=== PATIENT | male | born 2000 | race Caucasian/White ===

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

== ENCOUNTER 2020-03-22 19:34 | Emergency (ER) | payer MEDICAID ==
[~2020-03-22] VITALS: Ht 188 cm; Wt 85.7 kg
[2020-03-22 19:34] VITALS: BP 137/88
[~2020-03-22 19:34] MED LIST: CEPH-264 PO
[2020-03-22 22:05] LABS: INFLUENZA A PATIENT NEGATIVE (NEGATIVE); INFLUENZA B PATIENT NEGATIVE (NEGATIVE)
--- NOTE | 2020-03-22 22:14 | PHYS DOC ---
Past History Past Medical History: Sinusitis, Other Additional Past Medical Histor: concussion Past Surgical History: No Surgical History Smoking: Non-smoker Alcohol Use: None Drug Use: None General Adult EDM: Chief Complaint: HEADACHE HPI: HPI: ".. I get sinus problems this time a year... I am in isolation... because of school policy.. 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 Patient has been placed in isolation because of sinus complaints. Patient has had symptoms of increased congestion nasal drainage and sore throat for last 3 days. Patient states he has had seasonal sinus complaints every year at this time. In the past is used normal saline rinses, nasal steroids, and decongestants. Patient is on a scholarship from [employer] for his college patient is really from [place]. No recent travel outside the [place] area. No specific ill contacts. Patient is normally healthy. Patient up-to-date with vaccinations. Patient is scheduled to have COVID testing-by the [facility] this week. Review of Systems: Review of Systems: Constitutional: Denies fever or chills Eyes: Denies change in visual acuity HENT: Complains of nasal congestion and sore throat Respiratory: Denies cough or shortness of breath Cardiovascular: Denies chest pain or edema GI: Denies abdominal pain, nausea, vomiting, bloody stools or diarrhea : Denies dysuria Musculoskeletal: Denies back pain or joint pain Integument: Denies rash Neurologic: Denies headache, focal weakness or sensory changes Endocrine: Denies polyuria or polydipsia Lymphatic: Denies swollen glands Psychiatric: Denies depression or anxiety Heart Score: Risk Factors: Risk Factors: DM, Current or recent (<one month) smoker, HTN, HLP, family history of CAD, obesity. Risk Scores: Score 0 - 3: 2.5% MACE over next 6 weeks - Discharge Home Score 4 - 6: 20.3% MACE over next 6 weeks - Admit for Clinical Observation Score 7 - 10: 72.7% MACE over next 6 weeks - Early Invasive Strategies Family History: Family History: Noncontributory Current Medications: Current Meds: See nursing for home meds Allergies: Allergies: Allergies Coded Allergies Type Severity Reaction Last Updated Verified No Known Drug Allergies 06/01/19 No Physical Exam: PE: Constitutional: Well developed, well nourished, no acute distress, non-toxic appearance. [] HENT: Normocephalic, atraumatic, bilateral external ears normal, oropharynx moist, postnasal drainage and mild erythema no oral exudates, nose swollen turb inates and clear rhinorrhea Eyes: PERRLA, EOMI, conjunctiva normal, no discharge. [] Neck: Normal range of motion, no tenderness, supple, no stridor. No adenopathy. Cardiovascular:Heart rate regular rhythm, no murmur [] Lungs & Thorax: Bilateral breath sounds equal at apex with few scattered whee zes auscultation [] Abdomen: Bowel sounds normal, soft, no tenderness, no masses, no pulsatile masses. [] Skin: Warm, dry, no erythema, no rash. [] Back: No tenderness, no CVA tenderness. [] Extremities: No tenderness, no cyanosis, no clubbing, ROM intact, no edema. [] Neurologic: Alert and oriented X 3, normal motor function, normal sensory function, no focal deficits noted. [] Psychologic: Affect normal, judgement normal, mood normal. [] Current Patient Data: Labs: Laboratory Tests Test 03/22/20 21:02 03/22/20 21:07 Influenza Type A (Rapid) Negative (NEGATIVE) Influenza Type B (Rapid) Negative (NEGATIVE) Group A Streptococcus Rapid Negative (NEGATIVE) Vital Signs: Vital Signs Date Time Temp Pulse Resp B/P (MAP) Pulse Ox O2 Delivery O2 Flow Rate FiO2 03/22/20 19:34 98.4 66 18 137/88 (104) 98 Room Air EKG: EKG: [] Radiology/Procedures: Radiology/Procedures: [] Course & Med Decision Making: Course & Med Decision Making Pertinent Labs and Imaging studies reviewed. (See chart for details) Patient to use [id number] Flonase, use normal saline, continue [id number] decongestants. Patient to keep appointment for the [facility] COVID testing. Patient continue isolation as per the [facility] program. Patient take Tylenol and ibuprofen for any discomfort. Patient return if any concerns. Patient consider testing for COVID after he completes his isolation, As per [facility] policy. Impression: 1. Seasonal allergies [] Dragon Disclaimer: Dragon Disclaimer: This electronic medical record was generated, in whole or in part, using a voice recognition dictation system. Departure Departure: Disposition: 01 HOME/RESIDENCE PRIOR TO ADM Condition: STABLE Referrals: PCP,UNKNOWN (PCP) Justification of Admission: Justification of Admission: Justification of Admission Dx: N/A Dragon Disclaimer This chart was dictated in whole or in part using Voice Recognition software in a busy, high-work load, and often noisy Emergency Department environment. It may contain unintended and wholly unrecognized errors or omissions. Dragon Disclaimer This chart was dictated in whole or in part using Voice Recognition software in a busy, high-work load, and often noisy Emergency Department environment. It may contain unintended and wholly unrecognized errors or omissions. NATALIA MAHARJA MD Mar 22, 2020 22:14
== END 2020-03-22 22:20 | disposition home or self-care (01) ==
LOC: ER 19:34
DX: J30.2 Other seasonal allergic rhinitis (principal)
CPT/HCPCS: 87070; 87804; 87880; 99283